=== PATIENT | male | born 1985 | race Caucasian/White ===

== ENCOUNTER 2024-12-14 04:41 | Emergency (ER) | payer MEDICAID, OTHER ==
[~2024-12-14] VITALS: Ht 180.3 cm; Wt 100.0 kg
[2024-12-14] MEDS: levetiracetam-NACL1000mg/100ml 100 ML IV STA (05:57)
[2024-12-14 06:40] LABS: MEAN PLATELET VOLUME 7.2 FL (7.4-10.4); RED CELL DISTRIBUTION WIDTH 14.2 % (11.5-14.5)
--- NOTE | 2024-12-14 06:40 | ELECTROCARDIOGRAPH REPORT ---
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 Alex Caban Measurements Intervals [place] Rate: 122 P: 61 [place]: 149 QRS: 64 QRSD: 95 T: 86 QT: 363 QTc: 518 Interpretive Statements Sinus tachycardia Borderline repolarization abnormality Prolonged QT interval Electronically Signed On 12-14-2024 19:43:[address] Alex Caban Please click the below link to view image of tracing.
[2024-12-14 06:45] LABS: CREATININE 1.40 MG/DL (0.60-1.10); TOTAL CARBON DIOXIDE 22.5 MMOL/L (24-32); eCRCL 75 ML/MIN; eGFR 56 ML/MIN
--- NOTE | 2024-12-14 06:47 | Physician Documentation ---
History of Present Illness ~ Chief Complaint: ALOC Stated Complaint: ALOC Time Seen by MD: 06:21 OK to notify your PCP?: Yes Source: patient (14), RN/MD, RN notes reviewed, old records Mode of Arrival: EMS HPI Patient comes in for evaluation, having been brought in by ambulance after being found somewhat confused at his friend's house. He tells me that he has been very intoxicated tonight, and also did some cocaine, which is not his usual habit. Patient was brought to the emergency department where he had a seizure, followed by a 2nd seizure. He was altered in between the seizures, received 2 mg Ativan and 1000 mg of Keppra by the physician who saw him 1st. When I evaluated the patient at 6:20 a.m. he was awake, talking, and able to give me a history. He is feeling well at this time. He does note that he had a fall earlier, when he tried to stand up from a kneeling position and fell forward, striking his head. He does not think he lost consciousness. He has no complaints at this time. Medication Reconciliation Allergies: Coded Allergies: No Known Allergies (Unverified , 06/23/11) Past Medical History Past Medical History: No Pertinent History Past Surgical History: no surgical history Smoking Status: Light Tobacco User (Vape) Alcohol Use: Occasionally Drug Use: marijuana, cocaine (Tonight only, not habitual) Lives with: Mother, Father Lives In: Home Occupation: unemployed Review of Systems All Other Systems at this time: Reviewed and Negative Physical Exam Vital Signs: RN Vital Signs have been reviewed: Yes, Temperature: 98.0, Source: Temporal, Heart Rate: 126, Respiratory Rate: 25, BP: 149/84, Pulse Oximetry: 99, Weight: 100.000 Oxygen Flow Rate: 6.0 Physical Exam General: Pt is awake, slightly drowsy, oriented x4 in no acute distress. He is calm and cooperative, small strongly of alcohol. He is somewhat flushed, as well as sunburned. Head: Normocephalic and atraumatic. Eyes: Conjunctiva normal. ENT: Mucous membranes dry Neck: Supple. Chest: Clear to auscultation bilaterally, without rales, rhonchi, or wheezes. There is no accessory muscle use or retractions. Cardiac: Regular rate and rhythm without murmurs, gallops or rubs. Palpation of the chest wall is normal. Abd: Soft, nondistended, nontender, with normoactive bowel sounds. No guarding o r rebound. Extremities: Within normal limits without cyanosis, clubbing, or edema. Skin: [place], warm and dry with no significant rash appreciated. Neuro: Cranial nerves II-XII grossly intact. The gait is not tested at this time Progress Progress Note 02 sat 93-94% on room air Results/Orders Reviewed/noted all lab results: Yes Results/Orders Orders - GRAY BARNETT MD Electrocardiogram (12/14/24 06:23) Chest,Single View (12/14/24 06:23) Monitor (12/14/24 06:23) Saline Lock (12/14/24 06:23) Straight Cath For Urine Sample (12/14/24 06:23) Ct Head (12/14/24 06:23) Mri Head (12/14/24 16:00) Completed Orders - GRAY BARNETT MD Cbc/Diff (12/14/24 06:23) Lipase (12/14/24 06:23) Ethanol (12/14/24 06:23) Electrocardiogram (12/14/24 06:23) Chest,Single View (12/14/24 06:23) Ondansetron Inj. (Zofran 4mg/2ml Vial) (12/14/24 06:25) Ammonia (12/14/24 06:23) Drug Screen, Urine (12/14/24 06:23) Normal Saline 1000ml (0.9% Sodium Chlori (12/14/24 06:25) Nothing By Mouth (12/14/24 Lunch) Hs Troponin I W Calculations (12/14/24 06:23) CMP (12/14/24 06:23) Ct Head (12/14/24 06:23) Lidocaine 2% Viscous (Xylocaine 2% Visco (12/14/24 09:10) Mag & Alum Hydrox/Simeth Susp (Maalox Or (12/14/24 09:10) Mri Head (12/14/24 16:00) Vital Signs 12/14/24 12/14/24 12/14/24 12/14/24 04:52 05:02 06:07 07:00 Temp 98.7 98.0 Pulse 125 126 124 Resp 18 25 22 B/P (MAP) 150/78 149/84 (105) 129/72 (91) Pulse Ox 95 99 98 O2 Flow Rate 6.0 0 12/14/24 12/14/24 12/14/24 12/14/24 07:10 08:00 09:00 09:58 Pulse 108 106 117 Resp 18 13 16 B/P (MAP) 110/55 (73) 101/40 (60) 110/54 (72) Pulse Ox 94 95 94 O2 Flow Rate 0 0 0 12/14/24 12/14/24 12/14/24 12/14/24 10:31 11:00 11:54 12:53 Pulse 109 101 103 94 Resp 20 18 18 18 B/P (MAP) 115/59 (77) 101/49 (66) 133/66 (88) 134/61 (85) Pulse Ox 95 95 97 96 O2 Flow Rate 0 0 0 0 12/14/24 12/14/24 12/14/24 12/14/24 14:00 15:23 16:45 17:45 Pulse 80 77 76 74 Resp 16 18 18 18 B/P (MAP) 124/58 (80) 104/48 (66) 132/63 (86) 141/60 (87) Pulse Ox 96 98 99 97 O2 Flow Rate 0 0 0 0 12/14/24 20:04 Temp 98.6 Pulse 68 Resp 18 B/P (MAP) 122/80 Pulse Ox 99 Laboratory Tests Test 12/14/24 05:42 12/14/24 05:45 12/14/24 07:12 12/14/24 09:14 Glucometer 124 H White Blood Count 15.9 H Red Blood Count 4.99 Hemoglobin 14.4 Hematocrit 42.7 Mean Corpuscular Volume 85.6 Mean Corpuscular Hemoglobin 28.9 Mean Corpuscular Hemoglobin Concent 33.8 Red Cell Distribution Width 14.2 Platelet Count 266 Mean Platelet Volume 7.2 L Neutrophils (%) (Auto) 84.3 H Lymphocytes (%) (Auto) 7.2 L Monocytes (%) (Auto) 8.0 Eosinophils (%) (Auto) 0.2 Basophils (%) (Auto) 0.3 Neutrophils # (Auto) 13.4 H Lymphocytes # (Auto) 1.1 Monocytes # (Auto) 1.3 H Eosinophils # (Auto) 0.0 Basophils # (Auto) 0.1 CBC Comment Sodium Level 137 Potassium Level 3.6 Chloride Level 102 Carbon Dioxide Level 22.5 L Anion Gap 13 Blood Urea Nitrogen 18 Creatinine 1.40 H Estimated GFR/1.73 m2 56 BUN/Creatinine Ratio 12.9 Glucose Level 130 H Calcium Level 8.4 L Total Bilirubin 0.2 Aspartate Amino Transf (AST/SGOT) 27 Alanine Aminotransferase (ALT/SGPT) 31 Alkaline Phosphatase 82 Troponin I High Sensitivity 4 Total Protein 8.1 Albumin 4.4 Globulin 3.7 Albumin/Globulin Ratio 1.2 Lipase 13 L Chemistry Comments Ethyl Alcohol Level 179 H Ammonia 11 Urine Opiates Screen Negative Urine Methadone Screen Negative Urine Fentanyl Screen Negative Urine Barbiturates Screen Negative Urine Phencyclidine Screen Negative Urine Amphetamines Screen Negative Urine Benzodiazepines Screen Negative Urine Cocaine Screen Positive Urine Cannabinoids Screen Negative Drug Screen Comment Re-Evaluation Re-Evaluation #1: Re-Evaluation Time: 06:15 Progress Received report from Dr. Caban regarding patient's course to this point. I saw the patient and placed orders. Re-Evaluation #2: Re-Evaluation Time: 08:16 Progress Pt feeling better, remains awake and alert, c/o sore throat. Exam shows some hyperemia of posterior OP but no uvular/tonsillar swelling, no BAKESHOP CLEANER or other pathology. His girlfriend is on the way, will give him a ride home when appropriate. No further seizure activity. Current heart rate 107. I have explained to the patient that his new onset seizure will be [facility] and that he may not drive until cleared to do so. 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 Re-Evaluation #3: Re-Evaluation Time: 11:31 Progress Pt c/o intermittent blurry vision, CT equivocal; MRI ordered. Re-Evaluation #4: Re-Evaluation Time: 16:30 Progress Pt has finally gone for MRI Re-Evaluation #5: Re-Evaluation Time: 18:00 Progress Pt has remained stable throughout his stay. Significant delay in return of MRI report. Pt aware. Signed out to Dr. Caban, who will review results; I have written out discharge instructions in anticipation of a normal result. EKG/XRAY/CT/US/VASC/MRI EKG : EKG Rate: 122 EKG: sinus tach, prolonged QT Chest X-Ray : Interpreted By: both Additional Comments [facility] [address] [address] DIAGNOSTIC RADIOLOGY Patient: CHRISTIANO CRUZ Medical Record: [id number] [facility] : 1985, Age: 39 Sex: Male Location: ER Patient Status: REG ER Service Date/Time: 12/14/24622 Ordering Physician: GRAY BARNETT MD Exam: CHEST,SINGLE VIEW CHEST RADIOGRAPH Indication: aloc Technique: Single frontal view of the chest was obtained Comparison: None IMPRESSION: Heart appears prominent in size. The lungs appear clear without focal airspace opacity, effusion, or pneumothorax Electronically Signed by:BIGG BOSS MD Date & Time: 12/14/24651 Dictated by: BIGG BOSS MD Dictation date and time: 12/14/24651 Primary Care Provider: NO PRIMARY CARE PROVIDER cc: GRAY BARNETT MD ~ IMAGES REVIEWED BY EDMD DR. CABAN WHO AGREES WITH ABOVE FINDINGS CT : Interpreted By: both CT: head With Contrast?: No Impression [address] [address] CAT SCAN Patient: CHRISTIANO CRUZ Medical Record: [id number] [facility] : 1985, Age: 39 Sex: Male Location: ER Patient Status: REG ER Service Date/Time: 12/14/24622 Ordering Physician: GRAY BARNETT MD Exam: CT HEAD EXAM: CT CT HEAD INDICATION: new onset seizure TECHNIQUE: CT of the head without intravenous contrast. Coronal and sagittal reformatted images are submitted. Radiation Dose : 1. Head: CT Dose: CTDI volume is 61.7 mGy. Dose-length product is 1099.2 mGy*cm The dose indicators for CT are the volume Computed Tomography (CT) Dose Index (CTDIvol) and the Dose Length Product (DLP), and are measured in units of mGy and mGy-cm, respectively. These indicators are not patient dose, but values generated from the CT scanner acquisition factors. The report includes radiation exposure data for exposures received during this examination. All CT scans at this medical facility are performed using dose modulation techniques as appropriate to a performed exam including the following: Automated exposure control was utilized; adjustment of the MA and/or KV according to patient size; and use of iterative reconstruction technique. COMPARISON: None FINDINGS: Motion artifact and head tilt artifact limits evaluation. There some hypodensity in the left temporal lobe but this could be artifactual. There is no evidence of acute intracranial hemorrhage, extra-axial collection, mass effect, midline shift, herniation or hydrocephalus. The ventricles, sulci and cisterns are age appropriate. The bashir-white differentiation is intact. The visualized paranasal sinuses and mastoid air cells are clear. No depressed calvarial fracture. The surrounding soft tissues are unremarkable. IMPRESSION: 1. No acute intracranial hemorrhage or mass effect. Hypodensity in the left temporal lobe could be artifactual secondary to motion artifact and/or head tilt. MRI of the brain without intravenous contrast may be obtained for further evaluation. Electronically Signed by:BERNARDO FLOYD MD Date & Time: 12/14/24713 Dictated by: BERNARDO FLOYD MD Dictation date and time: 12/14/24713 Primary Care Provider: NO PRIMARY CARE PROVIDER cc: GRAY BARNETT MD ~ IMAGES REVIEWED BY EDMD DR. CABAN WHO AGREES WITH ABOVE FINDINGS MRI : Interpreted By: both MRI of: head With Contrast?: No Impression [address] [address] MRI Patient: CHRISTIANO CRUZ Medical Record: [id number] [facility] : 1985, Age: 39 Sex: Male Location: ER Patient Status: [facility] ER Service Date/Time: 12/14/241599 Ordering Physician: GRAY BARNETT MD Exam: MRI HEAD [facility] EXAMINATION: MR MRI HEAD INDICATION: trauma, equivocal CT COMPARISON: CT CT HEAD on DOS: 12/14/24 TECHNIQUE: Multiplanar, multisequence magnetic resonance imaging of the brain was performed without the use of intravenous contrast. FINDINGS: Evaluation is degraded by motion artifact. No evidence of acute or remote infarct. No intracranial hemorrhage. No mass effect. The ventricles and sulci are normal in size for age. Clear basal cisterns. Flow voids in the major intracranial vessels are maintained. No abnormality of the orbits. There is mild mucosal thickening within the maxillary antra and ethmoid air cells. No abnormality of the visualized osseous structures and extracranial soft tissues. IMPRESSION: 1. No acute intracranial abnormality identified. Electronically Signed by:SUREKHA LEIVA MD Date & Time: 12/14/241904 Dictated by: SUREKHA LEIVA MD Dictation date and time: 12/14/241599 Primary Care Provider: NO PRIMARY CARE PROVIDER cc: GRAY BARNETT MD ~ Medical Decision Making Additional Information Patient presented with some confusion, and secondary seizures early this morning, found to be intoxicated with both alcohol and stimulants. His mental status rapidly improved and he remained stable throughout his emergency department stay, laboratory workup reassuring, CT head reassuring without obvious intracranial hemorrhage but patient had some intermittent symptoms of blurry vision and given the suboptimal CT I elected to proceed with MRI to rule out any subtle findings. More than likely the symptoms are related to intoxication and possibly to mild concussion, although the mechanism of the patient's fall was only tipping forward from a kneeling position. Patient to be discharged after review of the MRI if negative. Of note, the patient has new onset seizures, while likely related to his drug use nevertheless represents a danger to himself and others if he is driving or using heavy machinery. I have spoken with him and given written discharge instructions indicating that he should not drive until cleared by his physician or neurologist to do so, and that the DMV has been notified. Patient understands he may return to the emergency department at any time should he have recurrence or worsening symptoms or any other concerns. Departure Time of Disposition: 20:03 Disposition: 01 HOME / SELF CARE / HOMELESS Impression: Primary Impression: Altered mental status Qualified Codes: R41.82 - Altered mental status, unspecified Additional Impressions: Alcohol intoxication Qualified Codes: F10.920 - Alcohol use, unspecified with intoxication, uncomplicated Stimulant intoxication Qualified Codes: F15.920 - Other stimulant use, unspecified with intoxication, uncomplicated Seizure Condition: Stable Discharge Instructions: General Discharge Instructions Additional Instructions: Please follow-up with your regular doctor this week, as you will need clearance to go back to driving. A report of the new onset seizures has been made to the V and you may not drive until cleared by either your doctor or a neurologist if referred by your doctor. Avoid alcohol and drug use. Take all regular medications. Return immediately to the emergency department if you begin to have severe headache, worsening visual symptoms, recurrent seizures, or any other concerns. Referrals: NO PRIMARY CARE PROVIDER (PCP) Education Educated: Patient Educated regarding: diagnosis, treatment Additional Comment Additional Comment Patient was signed out to me at 6:00 p.m.. MRI results came back as within normal limits. Reviewing the medical record there was no formal tele neurology consult. One was obtained. Recommended inpatient EEG patient refused admission. Patient will do the workup on an outpatient basis. Patient was told not to drive until cleared by Neurology. Patient understands he will receive an outpatient EEG. Also he needs to be seizure free for six months. In addition he may have had a reactive seizure rather than an etiology of a seizure disorder. No medications will be prescribed at this time. Additional workup as needed Dr. Caban Signature Scribe Signature: Scribed for Alex Caban MD by Nisreen Adame 12/14/24 19:39 Attestation: The note accurately reflects work and decisions made by me.Alex Caban MD 12/14/24 19:25 GRAY BARNETT MD Dec 14, 2024 06:47 ALEX CABAN MD Dec 14, 2024 19:25
[2024-12-14 06:49] LABS: ETHANOL 179 MG/DL (<10)
--- NOTE | 2024-12-14 06:54 | RADIOLOGY REPORT ---
CHEST RADIOGRAPH Indication: aloc Technique: Single frontal view of the chest was obtained Comparison: None IMPRESSION: Heart appears prominent in size. The lungs appear clear without focal airspace opacity, effusion, or pneumothorax
[2024-12-14] MEDS: ondansetron/PF 4mg/2ml inj IV ONE (07:00)
[2024-12-14] MEDS: normal saline 1000ML IV soln IVB ONE (07:01)
--- NOTE | 2024-12-14 07:15 | RADIOLOGY REPORT ---
EXAM: CT CT HEAD INDICATION: new onset seizure TECHNIQUE: CT of the head without intravenous contrast. Coronal and sagittal reformatted images are s ubmitted. Radiation Dose : 1. Head: CT Dose: CTDI volume is 61.7 mGy. Dose-length product is 1099.2 mGy*cm The dose indicators for CT are the volume Computed Tomography (CT) Dose Index (CTDIvol) and the Dose Length Product (DLP), and are measured in units of mGy and mGy-cm, respectively. These indicators are not patient dose, but values generated from the CT scanner acquisition factors. The report includes radiation exposure data for exposures received during this examination. All CT scans at this medical facility are performed using dose modulation techniques as appropriate to a performed exam including the following: Automated exposure control was utilized; adjustment of the MA and/or KV according to patient size; and use of iterative reconstruction technique. COMPARISON: None FINDINGS: Motion artifact and head tilt artifact limits evaluation. There some hypodensity in the left temporal lobe but this could be artifactual. There is no evidence of acute intracranial hemorrhage, extra-axial collection, mass effect, midline s hift, herniation or hydrocephalus. The ventricles, sulci and cisterns are age appropriate. The bashir-white differentiation is intact. The visualized paranasal sinuses and mastoid air cells are clear. No depressed calvarial fracture. The surrounding soft tissues are unremarkable. IMPRESSION: 1. No acute intracranial hemorrhage or mass effect. Hypodensity in the left temporal lobe could be a rtifactual secondary to motion artifact and/or head tilt. MRI of the brain without intravenous contr ast may be obtained for further evaluation.
[2024-12-14] MEDS: mag hydrox/Alum hydrox/simeth 30ml oral suspension PO ONE (09:37)
[2024-12-14] MEDS: LIDOcaine 2% Viscous 15ml cup MM PRN (09:37)
[2024-12-14 09:56] LABS: URINE AMPHETAMINE SCREEN NEGATIVE (Neg); URINE BARBITUATE SCREEN NEGATIVE (Neg); URINE BENZODIAZEPINES SCREEN NEGATIVE (Neg); URINE CANNABINOID SCREEN NEGATIVE (Neg); URINE COCAINE SCREEN POSITIVE (Neg); URINE METHADONE SCREEN NEGATIVE (Neg); URINE OPIATE SCREEN NEGATIVE (Neg); URINE PHENCYCLIDINE SCREEN NEGATIVE (Neg)
--- NOTE | 2024-12-14 19:08 | RADIOLOGY REPORT ---
[facility] EXAMINATION: MR MRI HEAD INDICATION: trauma, equivocal CT COMPARISON: CT CT HEAD on DOS: 12/14/24 TECHNIQUE: Multiplanar, multisequence magnetic resonance imaging of the brain was performed without the use of i ntravenous contrast. FINDINGS: Evaluation is degraded by motion artifact. No evidence of acute or remote infarct. No intracranial hemorrhage. No mass effect. The ventricles and sulci are normal in size for age. Clear basal cisterns. Flow voids in the major intracranial vessels are maintained. No abnormality of the orbits. There is mild mucosal thickening within the maxillary antra and ethmoid air cells. No abnormality of the visualized osseous structures and extracranial soft tissues. IMPRESSION: 1. No acute intracranial abnormality identified.
--- NOTE | 2024-12-14 19:55 | [facility] CONSULT REPORT ---
[facility] Procedure Note [facility] Procedure Note Consult [facility] Note # Demographics Consult Type: General Neurology Patient Location: Emergency Room First Name: NANCY Last Name: CHRISTIANO Date of : 1985 Age: 39 Gender: Male Facility: [facility] Time of Initial Page (): 12/14/2024 19:42 Time of Return Call (): 12/14/2024 19:42 # HPI Chief Complaint: - seizure History: 39-year-old male, presents with new-onset seizures. He experienced three seizures within the past 15 hours, including one prior to arrival, one in the ER, and another while being evaluated. The patient was initially found confused on the floor of the room before seizing on the gurney. He has been at baseline for the past 6-8 hours. +Tongue biting. No urinary incontinence. The patient has a history of polysubstance abuse, with recent cocaine use and an alcohol level of 179. It is unclear whether the seizures are related to s ubstance use or represent a new neurological condition. No prior brain injury. No BELT BRANDER infection. No prior seizures. No family history of seizures. MRI Brain wo was completed and it showed no acute findings. No seizure focus. # Scores Time of exam and NIHSS (): 12/14/2024 19:52 Level of Consciousness 1a: [0] = Alert; keenly responsive LOC Questions 1b: [0] = Answers both questions correctly LOC Commands 1c: [0] = Performs both tasks correctly Best Gaze 2: [0] = Normal Visual 3: [0] = No visual loss Facial Palsy 4: [0] = Normal symmetrical movements Motor Arm Left 5a: [0] = No drift Motor Arm Right 5b: [0] = No drift Motor Leg Left 6a: [0] = No drift Motor Leg Right 6b: [0] = No drift Limb Ataxia 7: [0] = Absent Sensory 8: [0] = Normal Best Language 9: [0] = No aphasia Dysarthria 10: [0] = Normal Extinction and Inattention 11: [0] = No abnormality NIHSS Total: 0 # ROS Additional: - complete review of systems otherwise negative # Data Time Head CT personally read by me (): 12/14/2024 19:[address]: - no bleed - per radiologist read MRI: - no acute ischemia - per radiologist read # Assessment Impression: - New-onset seizure. Negative imaging. Patient is not willing to be started on anti-epileptics at this time. He wants to go home. Doesn't want to stay for EEG. Recommend outpatient neuro follow up for routine EEG. # Plan Thrombolytic/Intervention: NOT IV Thrombolysis or IA Intervention candidate Intraarterial Exclusion: - clinically not consistent with stroke Thrombolytic/Intraarterial Exclusion: - IV thrombolytic and IA intervention considered but not recommended as this patient's symptoms are not clinically consistent with an assumed diagnosis of stroke Imaging / diagnostics: (urgency: outpatient): - EEG Other: - seizure precautions - neurology referral as outpatient Additional Recommendations: - Give 2 grams IV magnesium sulfate for serum magnesium <= 1.8, optimize other electrolytes - May consider brief course of Ativan as temporizing measure (1 mg BID x 2 days) if provoking factor such as infection, medication noncompliance, or metabolic abnormality is found - Avoid epileptogenic medications such as wellbutrin, cefepime, ultram, quinolones, and imipenum - Seizure precautions, including appropriate state law prohibiting driving, avoiding heights, tubs/swimming pools and standing over open flames Disposition: discharge # Demographics First Name: CRUZ Last Name: CHRISTIANO Facility: [facility] Neuro Consult Order placed for: Yes VIPUL RAMOS MD Dec 14, 2024 19:55
[2024-12-14 20:04] VITALS: BP 122/80; PULSE 68; RESP 18; TEMP 98.6; O2SAT 99
== END 2024-12-14 20:06 | disposition home or self-care (01) ==
LOC: ER 04:41
DX: F10.129 Alcohol abuse with intoxication, unspecified (principal); R41.82 Altered mental status, unspecified; F15.129 Other stimulant abuse with intoxication, unspecified; F14.90 Cocaine use, unspecified, uncomplicated; F17.290 Nicotine dependence, other tobacco product, uncomplicated; F12.90 Cannabis use, unspecified, uncomplicated; I49.8 Other specified cardiac arrhythmias; Z56.0 Unemployment, unspecified; Z72.89 Other problems related to lifestyle; Y90.9 Presence of alcohol in blood, level not specified
CPT/HCPCS: 36415; 70450; 70551; 71045; 80053; 80305; 80320; 82140; 82948; 83690; 84484; 85025; 93005; 96365; 96366; 96375; 99285; J1953; J2060; J2405; J7030

== ENCOUNTER 2024-12-15 19:26 | Emergency (ER) | payer OTHER ==
[~2024-12-15] VITALS: Ht 182.9 cm; Wt 73.8 kg
[2024-12-16 00:55] LABS: MEAN PLATELET VOLUME 7.1 FL (7.4-10.4); RED CELL DISTRIBUTION WIDTH 14.3 % (11.5-14.5)
[2024-12-16 01:09] LABS: CREATININE 1.19 MG/DL (0.60-1.10); TOTAL CARBON DIOXIDE 30.3 MMOL/L (24-32); eCRCL 87 ML/MIN; eGFR 68 ML/MIN
--- NOTE | 2024-12-16 01:23 | Physician Documentation ---
History of Present Illness ~ Chief Complaint: Weakness Stated Complaint: HEADACHE/ BLURRY VISION Time Seen by MD: 01:19 OK to notify your PCP?: Yes Source: patient, RN/MD, RN notes reviewed, old records Mode of Arrival: POV Exam Limitations: no limitations HPI 39 year old male presents to the emergency room seen in bed 03 for complaints of a headache. He states that he does not normally get headaches but but he is currently complaining of one on the top of his head. He states that it is associated with photosensitivity, nausea, but denies any vomiting. He states th at he has not taken any medication for his pain. Patient states he has been able to eat normally. Of note, patient was seen recently for status epileptics and offered admission for an EEG but he denied and left AMA. Medication Reconciliation Allergies: Coded Allergies: No Known Allergies (Unverified , 12/15/24) Past Medical History Past Medical History: No Pertinent History Past Surgical History: no surgical history Alcohol Use: Occasionally Drug Use: marijuana, cocaine Lives with: Mother, Father Lives In: Home Occupation: unemployed Review of Systems All Other Systems at this time: Reviewed and Negative ROS Scribed for Alex Alston MD by Yoselin Bates . 12/16/24 01:30 Physical Exam Vital Signs: RN Vital Signs have been reviewed: Yes, Temperature: 96.8, Source: Temporal, Heart Rate: 48, Respiratory Rate: 18, BP: 129/85, Pulse Oximetry: 99, Weight: 73.800 Pulse Oximetry Reflects: adequate oxygenation Physical Exam General: The patient is well developed, well nourished, nontoxic appearing and is in no acute distress. Skin: [place], warm and dry with no rashes. HEENT: Head was normocephalic and atraumatic. Eyes - pupils equal, round, reactive to light and accommodation. Extraocular movements were intact. Conjunctivae were nonicteric. Ears - bilateral tympanic membranes were normal. The mouth and oropharynx were clear with moist mucous membranes. There were no pharyngeal exudates or erythema. Neck: Supple and nontender. There was no jugular venous distention, lymphadenopathy, thyromegaly or masses. Chest: Clear to auscultation bilaterally without wheezes, rales or rhonchi. No accessory muscle use. No dullness to percussion. Heart: Rate regular and rhythmic. S1, S2. No murmurs. Palpation of the chest wall was normal. No rubs or thrills. Abdomen: Soft, nontender and nondistended. Positive bowel sounds. No guarding or rebound. No hepatosplenomegaly or palpable masses. Extremities: No cyanosis, clubbing or edema. The patient moves all extremities. Pulses were equal and symmetric. Neurologic: Cranial nerves II-XII were intact. Sensation was intact to light touch throughout. Motor strength was 5/5 in all four extremities. Deep tendon reflexes were intact in both upper and lower extremities. Psychologic: The patient was oriented to person, place and time. The patient demonstrated appropriate judgement and insight. Progress Results/Orders Reviewed/noted all lab results: Yes Results/Orders Completed Orders - ALEX ALSTON MD Cbc/Diff (12/16/24 00:29) CMP (12/16/24 00:29) Man Diff (12/16/24 00:43) Ethanol (12/16/24 01:21) MG (12/16/24 01:21) Myoglobin (12/16/24 01:21) CK (12/16/24 01:21) Liver Panel (12/16/24 01:21) Drug Screen, Urine (12/16/24 01:21) Prochlorperazine Inj (Compazine Inj) (12/16/24 01:30) Ketorolac Trometh 30mg/Ml Vial (Toradol (12/16/24 01:30) Normal Saline 1000ml (0.9% Sodium Chlori (12/16/24 01:30) Normal Saline 1000ml (0.9% Sodium Chlori (12/16/24 01:30) Ua W/Microscopic, Cult If Ind (12/16/24 01:24) Vital Signs 12/15/24 12/16/24 12/16/24 12/16/24 19:39 01:05 01:06 02:58 Temp 96.8 Pulse 71 48 45 Resp 15 16 18 18 B/P (MAP) 142/72 129/85 (100) 101/44 (63) Pulse Ox 100 99 99 12/16/24 04:53 Temp 96.8 Pulse 48 Resp 19 B/P (MAP) 112/60 Pulse Ox 100 Laboratory Tests Test 12/16/24 00:43 12/16/24 01:24 White Blood Count 7.9 Red Blood Count 4.97 Hemoglobin 14.6 Hematocrit 42.5 Mean Corpuscular Volume 85.5 Mean Corpuscular Hemoglobin 29.3 Mean Corpuscular Hemoglobin Concent 34.3 Red Cell Distribution Width 14.3 Platelet Count 242 Mean Platelet Volume 7.1 L Neutrophils (%) (Auto) 56.3 Lymphocytes (%) (Auto) 25.2 Monocytes (%) (Auto) 15.0 H Eosinophils (%) (Auto) 2.5 Basophils (%) (Auto) 1.0 Neutrophils # (Auto) 4.4 Lymphocytes # (Auto) 2.0 Monocytes # (Auto) 1.2 H Eosinophils # (Auto) 0.2 Basophils # (Auto) 0.1 CBC Comment Differential Total Cells Counted 100 Neutrophils % (Manual) 60.0 Lymphocytes % (Manual) 22.0 Monocytes % (Manual) 16.0 H Eosinophils % (Manual) 2.0 Platelet Estimate Normal Red Blood Cell Morphology Perf Basophilic Stippling Sodium Level 138 Potassium Level 4.6 Chloride Level 103 Carbon Dioxide Level 30.3 Anion Gap 5 L Blood Urea Nitrogen 16 Creatinine 1.19 H Estimated GFR/1.73 m2 68 BUN/Creatinine Ratio 13.4 Glucose Level 109 H Calcium Level 9.0 Magnesium Level 2.2 Total Bilirubin 0.3 Direct Bilirubin 0.1 Aspartate Amino Transf (AST/SGOT) 27 Alanine Aminotransferase (ALT/SGPT) 29 Alkaline Phosphatase 78 Total Creatine Kinase 217 Myoglobin 34.0 Total Protein 7.7 Albumin 3.8 Globulin 3.9 Albumin/Globulin Ratio 1.0 L Chemistry Comments Ethyl Alcohol Level < 10 Urine Specimen Description Cln catch midstream Urine Color Yellow Urine Clarity Clear Urine pH 6.5 Urine Specific [place] 1.020 Urine Protein Negative Urine Glucose (UA) Negative Urine Ketones Negative Urine Occult Blood Trace-intact Urine Nitrite Negative Urine Bilirubin Negative Urine Urobilinogen 0.2 Urine Leukocyte Esterase Negative Urine RBC 0-2 Urine WBC 0-4 Urine Squamous Epithelial Cells None seen Urine Amorphous Phosphates Urine Bacteria None seen Urine Culture Indicated Not ind Volume Urine Centrifuged 10 ml Urine Comment Urine Opiates Screen Negative Urine Methadone Screen Negative Urine Fentanyl Screen Negative Urine Barbiturates Screen Negative Urine Phencyclidine Screen Negative Urine Amphetamines Screen Negative Urine Benzodiazepines Screen Negative Urine Cocaine Screen Positive Urine Cannabinoids Screen Negative Drug Screen Comment Re-Evaluation Re-Evaluation : Re-Evaluation: Improved Progress Patient presents with a headache. Patient was placed in bed three. Patient was given a migraine cocktail. Saline boluses were provided including Toradol and Compazine. Laboratory work was obtained as the patient was having additional symptoms. Laboratory work CBC was within normal limits no anemia no leukocytosis to suggest any signs of infection. Chemistry was also within normal limits. Alcohol is within normal limits. Tox screen is positive for cocaine. Urinalysis is also within normal limits. After hydration patient is feeling much better symptoms resolved he was discharged home to follow up with his primary care physician. 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 Pulse oximetry monitor interpretation shows normal oxygenation at 100% room air, normal, my interpretation. Medical Decision Making Additional info obtained from: old records Differential Dx:Considerations: Include: anemia, CVA, dehydration, dysrhythmia, electrolyte imbalance, encephalopathy, hypoglycemia, hypotension, hypovolemia, labyrinthitis, myasathenia gravis, myocardial infarction, renal failure, TIA, vertigo central, vertigo peripheral, vestibular neuronitis, other Departure Time of Disposition: 04:15 Disposition: 01 HOME / SELF CARE / HOMELESS Impression: Primary Impression: Headache Qualified Codes: R51.9 - Headache, unspecified Condition: Stable Discharge Instructions: General Headache Without Cause, [id number] Referrals: NO PRIMARY CARE PROVIDER (PCP) Education Educated: Patient Educated regarding: diagnosis, treatment, prognosis Signature Scribe Signature: Scribed for Alex Alston MD by Yoselin Bates . 12/16/24 01:31 Attestation: The note accurately reflects work and decisions made by me.Alex Alston MD 12/16/24 01:23 ALEX ALSTON MD Dec 16, 2024 01:23 YOSELIN WATERS Dec 16, 2024 01:31
[2024-12-16 01:44] LABS: LEUKOCYTE ESTERASE ,URINE NEGATIVE (Neg); NITRITES, URINE NEGATIVE (Neg); OCCULT BLOOD,URINE TRACE-INTACT (Neg)
[2024-12-16 01:45] LABS: UA COLLECTION TYPE CLN CATCH MIDSTREAM
[2024-12-16 01:51] LABS: URINE AMPHETAMINE SCREEN NEGATIVE (Neg); URINE BARBITUATE SCREEN NEGATIVE (Neg); URINE BENZODIAZEPINES SCREEN NEGATIVE (Neg); URINE CANNABINOID SCREEN NEGATIVE (Neg); URINE COCAINE SCREEN POSITIVE (Neg); URINE METHADONE SCREEN NEGATIVE (Neg); URINE OPIATE SCREEN NEGATIVE (Neg); URINE PHENCYCLIDINE SCREEN NEGATIVE (Neg)
[2024-12-16] MEDS: ketorolac trometh 30MG/ML vial 30 MG/ML VIAL IV ONE (01:54)
[2024-12-16 01:57] LABS: EOSINOPHILS % (MANUAL) 2.0 % (0-6); LYMPHOCYTES % (MANUAL) 22.0 % (21-51); MONOCYTES % (MANUAL) 16.0 % (2-12); NEUTROPHILS % (MANUAL) 60.0 % (42-75); PLATELET ESTIMATE NORMAL
[2024-12-16] MEDS: normal saline 1000ML IV soln IVB ONE (01:57)
[2024-12-16 02:11] LABS: ETHANOL < 10 MG/DL (<10); MYOGLOBIN 34.0 ng/ml (16-96)
[2024-12-16 02:26] LABS: SQUAMOUS EPITHELIAL CELL,UR NONE SEEN /LPF (FEW)
[2024-12-16] MEDS: normal saline 1000ml 1,000 ML IV ONE (03:32)
[2024-12-16 04:53] VITALS: BP 112/60; PULSE 48; RESP 19; TEMP 96.8; O2SAT 100
== END 2024-12-16 04:55 | disposition home or self-care (01) ==
LOC: ER 19:27
DX: R51.9 Headache, unspecified (principal); H53.8 Other visual disturbances; R11.0 Nausea; F12.90 Cannabis use, unspecified, uncomplicated; Z79.899 Other long term (current) drug therapy
CPT/HCPCS: 36415; 80053; 80076; 80305; 80320; 81001; 82550; 83735; 83874; 85025; 96361; 96374; 96375; 99284; J0780; J1885; J7030; 85007

== ENCOUNTER 2024-12-22 20:28 | Emergency (ER) | payer OTHER ==
[~2024-12-22] VITALS: Ht 182.9 cm; Wt 97.7 kg
[2024-12-22 20:40] VITALS: TEMP 98.5
--- NOTE | 2024-12-22 22:48 | Physician Documentation ---
History of Present Illness ~ General Chief Complaint: See Chief Complaint Stated Complaint: NOTE TO RETURN TO WORK Time Seen by MD: 20:43 OK to notify your PCP?: Yes Source: patient, RN/MD History of Present Illness Initial Comments Patient is seen today with complaints of needing a note for work stating that he is currently unable to work for the next 60 days due to recently having had a seizure. Patient denies any repeat seizure activity in currently denies any headache or chest pain or shortness of breath or abdominal pain or nausea, vomiting, diarrhea. Patient has no other concern or complaint at this time. Medication Reconciliation Allergies: Coded Allergies: No Known Allergies (Unverified , 12/15/24) Past Medical History Past Medical History: No Pertinent History Past Surgical History: no surgical history Smoking Status: Current every day smoker Alcohol Use: Occasionally Drug Use: marijuana, cocaine Lives with: Mother, Father Lives In: Home Occupation: unemployed Review of Systems Constitutional: Denies: chills, fever, weakness Eyes: Denies: pain, blurred vision ENT: Denies: ear pain, nose pain, throat pain, mouth pain Respiratory: Denies: cough, shortness of breath Cardiovascular: Denies: chest pain, palpitations Gastrointestinal: Denies: abdominal pain, nausea, vomiting Genitourinary: Denies: burning, dysuria Male Genitalia: Denies: penile discharge, testicular pain Neurological: Denies: headache, dizziness Musculoskeletal: Denies: pain, swelling Integumentary: Denies: rash, lesions Allergic/Immunologic: Denies: hives, itching Hematologic/Lymphatic: Denies: no symptoms reported Psychiatric: Denies: depression, anxiety Physical Exam Physical Exam Vital Signs: Temperature: 98.5, Heart Rate: 71, Respiratory Rate: 16, BP: 154/74, Pulse Oximetry: 97, Weight: 97.730 Oxygen Flow Rate: 0 Physical Exam General: Awake and Alert, no acute distress. HEENT: Conjunctiva pink, Sclera clear, Mucus Membranes moist. Neck: Supple without masses and tenderness. Resp: Unlabored. Lungs clear to auscultation bilaterally. Heart: Regular Rate and rhythm, normal S1 and S2 without murmur, rub or gallop. Abdomen: Soft and non tender no organomegaly Extremities: No cyanosis,clubbing or edema. Skin: Warm and Dry. Progress Results/Orders Results/Orders Vital Signs 12/22/24 20:40 Temp 98.5 Pulse 71 Resp 16 B/P (MAP) 154/74 Pulse Ox 97 O2 Flow Rate 0 Medical Decision Making Findings Patient is seen today with complaints of needing a note for work stating that he is currently unable to work for the next 60 days due to recently having had a seizure. Patient denies any repeat seizure activity in currently denies any headache or chest pain or shortness of breath or abdominal pain or nausea, vomiting, diarrhea. Patient has no other concern or complaint at this time. Patient is given note for work stating that he is unable to work for the next 60 days due to seizure-like activity and patient will need further eval by Neurology before he is cleared to return to work. Patient will return to ED with any worsening, concerning or changing symptoms. Departure Disposition: 01 HOME / SELF CARE / HOMELESS Impression: Primary Impression: Seizure Condition: Stable Additional Instructions: Patient is given note for work stating that he is unable to work for the next 60 days due to seizure-like activity and patient will need further eval by Neurology before he is cleared to return to work. Patient will return to ED with any worsening, concerning or changing symptoms. Departure Forms: Excuse form Work or School Excused From: Work Excuse beginning now through the following date: Feb 21, 2025 Referrals: NO PRIMARY CARE PROVIDER (PCP) Signature Scribe Signature: No scribe Attestation: No scribe JUNE MARTINEZ PAC Dec 22, 2024 22:48
[2024-12-22 22:53] VITALS: BP 153/73; PULSE 70; RESP 18; O2SAT 99
== END 2024-12-22 22:54 | disposition home or self-care (01) ==
LOC: ER 20:29
DX: R56.9 Unspecified convulsions (principal); F17.200 Nicotine dependence, unspecified, uncomplicated; F12.90 Cannabis use, unspecified, uncomplicated; F14.90 Cocaine use, unspecified, uncomplicated; Z72.89 Other problems related to lifestyle; Z56.0 Unemployment, unspecified
CPT/HCPCS: 99281